=== PATIENT | male | born 1960 | race Caucasian/White ===

== ENCOUNTER → 2020-01-16 | Day surgery (SDC) | payer OTHER ==
--- NOTE | 2020-01-15 11:41 | Pre Op History & Physical ---
CHIEF COMPLAINT: Chronic sinusitis, nasal obstruction, and left oroantral fistula. HISTORY OF PRESENT ILLNESS: This 59-year-old male has sinus problem for a few months. 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 The patient has postnasal drip discharge from his nose. He has decreased sense of smell. He has epistaxis. The patient also complained of frontal and maxillary pain. He has decreased sense of smell. His condition has been treated with topical nasal steroid decongestant, antibiotics with no improvement. The patient had a sinuplasty in the October 2019, with some improvement of the condition. However, the oroantral fistula persists. The patient also claimed that he saw an Oral surgeon, which put a probe in the oroantral fistula and actually made the area bigger with more drainage. CT scan of paranasal sinuses done recently showed the patient has chronic sinusitis with involvement of the left frontal ethmoid maxillary sinus and blockage of the ostiomeatal complex more so on the left side. REVIEW OF SYSTEMS: System review showed no recent cardiovascular, respiratory, or GI problem. PAST MEDICAL HISTORY: The patient has a history of type 2 diabetes, hypertension, coronary artery disease, and also history of rheumatoid arthritis. MEDICATIONS: He is on losartan- HCTZ, Synjardy, Xeljanz, NovoLog, Tresiba, testosterone, and omeprazole. ALLERGIES: HE HAS NO KNOWN ALLERGY TO MEDICATION. SOCIAL HISTORY: The patient has stopped smoking in October 2018, and was a half-a-pack a day smoker and is a nondrinker. FAMILY HISTORY: Noncontributory. PAST SURGICAL HISTORY: The patient has a cardiac stent insertion about two years ago and carpal tunnel release in both wrists. PHYSICAL EXAMINATION: VITAL SIGNS: The patient's vital signs were within normal limits. HEENT: Ear exam showed normal tympanic membrane bilaterally. Nasal exam showed hypertrophy of the inferior turbinates with deviated nasal septum to the left side about 20%. Oropharynx and oral cavity show no obvious abnormality. At the left 2nd and 3rd molar location, there is an oroantral fistula on the left side. NECK: Showed no lymph node or thyroid palpable. CHEST: Showed good air entry bilaterally. CARDIOVASCULAR: Showed S1, S2. No murmur noted. ASSESSMENT AND PLAN: Mr. Daily has chronic sinusitis, nasal obstruction, oroantral fistula, which has been resistant to conservative therapy. The suggested treatment is endoscopic sinus surgery, septoplasty, and other necessary procedure. The complication of procedure includes, but not limited to bleeding, infection, CSF leak, blindness, double vision, meningitis, septal perforation, septal hematoma, persistent nasal obstruction, persistent nasal crusting, nasal deformity, recurrence of the sinus problem and persistent of the oroantral fistula. The alternative will be continue observation, continue antibiotic therapy, topical nasal steroid therapy, systemic steroid therapy decongestant. I have advised the patient that the first step of the approach to the oroantral fistula is open up the sinuses and there would likely be a second-stage, where after the sinuses are clear to close the oroantral fistula. The patient has elected to undergo surgical procedure. MD ZAC Acosta/ALEX /[id number] cc: [facility]
[~2020-01-16] MED LIST: CARVEDILOL12.5 MG PO; CLOPIDOGREL75 MG PO; CRESTOR10 MG PO; DESFLURANE 240 ML BTL INH ONE; DEXAMETHASONE SOD PHOS INJ 4 MG/ML VIAL ONE; EPINEPHRINE HCL 1:1000 1ML 1 MG/ML AMP ONE; FENOFIBRATE145 MG PO; FENTANYL CITRATE/PF 100MCG/2 ML INJ ONE; FOLIC ACID PO; GLYCOPYRROLATE INJ 0.2 MG/ML VIAL ONE; LIDOCAINE 1% W/EPINEPHRINE 20 ML VIAL ONE; LIDOCAINE HCL 2% LOCAL INJ 5 ML SDV VIAL INJ ONE; LOSARTAN-HCTZ1 EACH PO; METHOTREXA25 MG/1 ML SC; METOCLOPRAMIDE HCL 10 MG/2ML VIAL ONE; MIDAZOLAM HCL 2 MG/2 ML VIAL ONE; NEOSTIGMINE 1 MG/ML 10ML VIAL ONE; NOVOLOG100 UNITS1 SQ; OMEPRAZOLE40 MG PO; ONDANSETRON HCL INJ 2MG/ML 2ML 2 MG/ML VIAL ONE; ONE A DAY VITAMIN PO; POTASSIUM PO; PROPOFOL IV EMULSION 10 MG/ML 20 ML VIAL ONE; ROCURONIUM BROMIDE 10 MG/ML 5ML VIAL IV ONE; SYNJARDY 12.5-1 EACH PO; TRESIBA100 UNIT/1 INJ; VITAMIN D3 PO
--- NOTE | 2020-01-16 08:58 | NUR ---
SPIRITUAL CARE - Pre-Surgery Assessment: Pt in bed. Pt's friend at bedside. Pt reported supportive attention from family and friends. Intervention: I provided pastoral presence, hospitality, and sympathetic listening. I acquainted pt with availability of hadoop application developer while hospitalized. Outcome: Pt expressed appreciation for visit. No need for follow up indicated at this time. JOCE Gregoriolain Spiritual Care Department O: [phone]
[2020-01-16 10:10] VITALS: BP 142/70
--- NOTE | 2020-01-16 15:20 | Operative Report ---
DATE OF PROCEDURE: 01/16/2020 SURGEON: Torsten Bolivar MD CHIEF COMPLAINT: Chronic sinusitis, nasal obstruction, left oroantral fistula. POSTOPERATIVE DIAGNOSES: Chronic sinusitis, nasal obstruction, left oroantral fistula. OPERATIVE PROCEDURES: Bilateral anterior and posterior ethmoidectomy, bilateral maxillary sinus antrostomy, bilateral resection of inflamed tissue, maxillary antrum, left exploration of nasofrontal recess area, right sphenoidectomy and septoplasty. ANESTHESIA: Anesthesiology Group. INDICATIONS: This 59-year-old male has history of nasal obstruction. He has an oroantral fistula, which in the left 2nd molar area. This came on after the patient had a tooth extraction. This was at the end of last year. The patient has been treated with topical nasal steroid, decongestant, and antibiotics with over 14 weeks with no improvement. He had a sinuplasty for his sinus condition, which has improvement of the sinus problem. However, the oroantral fistula is still present and apparently not ventilating enough. On examination, he was noted to have a deviated nasal septum in the midportion against the left middle turbinate about 30%. The mucopus still seems to be draining from the middle meatal area. CT scan of paranasal sinuses done showed the patient has involvement of the frontal sinus on the left side and anterior posterior ethmoid sinuses involvement on the left, maxillary sinus involvement on the left side with total opacification. The right ethmoid sinus anterior and posterior ethmoid sinuses involvement and right blockage of the ostiomeatal complex and right sphenoid sinus involvement. Some involvement of the maxillary antrum was noted. It was decided that endoscopic sinus surgery, septoplasty, and other necessary procedure will be beneficial for him. DESCRIPTION OF PROCEDURE: The patient was taken to the operating room, put under general anesthesia, endotracheally intubated. The nose was injected with 1% Xylocaine with 1:100,000 epinephrine for hemostasis. Epinephrine-soaked pledgets were inserted in the nose and this were subsequently removed. The left paranasal sinuses were approached first. Middle turbinate was medialized. The middle meatus on the left side was medialized. Using a microdebrider the bulla ethmoidalis was entered. Anterior and posterior ethmoid sinuses were dissected in systematic fashion. Mucopus was noted coming from the ethmoid and maxillary sinus area. Care was taken during dissection to ascertain although it was not entered. Inflamed tissue was noted both anterior and posterior ethmoid sinus area. During the dissection, Valsalva maneuver was performed to ascertain that there was no obvious CSF leak because of the oozing being more than usual. Using a microshaver, the frontal sinus area was opened up and some mucopus was noted coming from this area. The inflamed tissue was dissected off. Using a curved probe natural ostium maxillary sinus was entered. Mucopus was noted coming from this area. Anaerobic, aerobic and AFB and fungal culture were obtained. The maxillary antrum was enlarged using the microdebrider. Using 120 degree tip of the microshaver, a large amount of inflamed tissue was dissected in the maxillary antrum. This was assisted by using a 45 degree and subsequently a 70 degree telescope. The right paranasal sinuses were approached. Again, the middle turbinate was medialized. The bulla ethmoidalis was entered, anterior and posterior ethmoid sinuses were dissected in a systematic fashion. Care was taken during dissection to ascertain although was not entered. Inflamed tissue was noted in both anterior and posterior ethmoid sinus area. Using a curved probe, the natural ostia maxillary sinus was entered, this was enlarged anteriorly and posteriorly using backbiter and Javier-Cut forceps respectively. Inflamed tissue and maxillary antrum were dissected using a microshaver. The sphenoid sinus was entered through the natural ostium on the right side. This was enlarged using a microshaver. Inflamed tissue in the sphenoid sinus was dissected using a microshaver. The septoplasty was performed. A hemitransfixion incision was done on the left side. Mucoperichondrial flap was elevated on the left. The bony cartilaginous junction was encountered and this was . Perpendicular plate of the ethmoid was transected, this was removed along with the vomer. The quadrangular cartilage after being freed from the posterior constraint was able to swing back in the midline. This also opened up the mid to posterior portion of the septum for proper ventilation and airway for the left middle meatal area. The hemitransfixion incision was closed using 4-0 chromic suture in interrupted fashion. Septal whipstitch was done using 4-0 plain gut suture to reapproximate the mucoperichondrial flap and prevent septal hematoma formation. Nasal pull was inserted in the sinus cavities on either side. This was done to prevent synechiae formation and for hemostasis. The patient tolerated the above procedure well. Estimated blood loss about 30 mL. He was able to be transferred to recovery room in stable condition. MD ZAC Acosta/ALEX /[id number]
== END | disposition home or self-care (01) ==
LOC: OR 05:25
PROVIDERS: ATTEND Otolaryngology Otolaryngology/Facial Plastic Surgery
DX: J32.0 Chronic maxillary sinusitis (principal); J32.2 Chronic ethmoidal sinusitis; J32.1 Chronic frontal sinusitis; J32.3 Chronic sphenoidal sinusitis; J34.2 Deviated nasal septum; J34.89 Other specified disorders of nose and nasal sinuses; G47.33 Obstructive sleep apnea (adult) (pediatric); I10 Essential (primary) hypertension; I25.10 Atherosclerotic heart disease of native coronary artery without angina pectoris; K21.9 Gastro-esophageal reflux disease without esophagitis; E11.9 Type 2 diabetes mellitus without complications; M06.9 Rheumatoid arthritis, unspecified; Z79.02 Long term (current) use of antithrombotics/antiplatelets; Z79.4 Long term (current) use of insulin; Z95.5 Presence of coronary angioplasty implant and graft; Z87.891 Personal history of nicotine dependence
CPT/HCPCS: 30520; 31259; 31267; 31276; 36415; 82948; 87071; 87075; 87102; 87205; 87206; 88300; 88305; J0171; J1100; J2001; J2250; J2405; J2704; J2710; J2765; J3010; 88304

== ENCOUNTER → 2020-03-26 | Day surgery (SDC) | payer OTHER ==
--- NOTE | 2020-03-25 23:00 | Pre Op History & Physical ---
CHIEF COMPLAINT: Closure of left oral antral fistula in #26. Left maxillary oral antral fistula. HISTORY OF PRESENT ILLNESS: This 60-year-old male has history of sinusitis for almost a year. The patient had a tooth extraction and resulted in an oral antral fistula in tooth #26. This has aggravated his sinus problem. The sinus problem has been treated with topical nasal steroid, decongestant, antibiotics with no improvement. He has undergone endoscopic sinus surgery with large intranasal antral window to help ventilate the sinus cavity on both sides. The patient antral fistula on the left with connection to the maxillary sinus has closed for a while, but has recurred. The patient still has some drainage, which is a greenish from the sinus cavities from the left side. The patient's Valsalva air bubble could be seen coming through to the fistula site intraorally and also he could hear the connection into the nasal cavity. REVIEW OF SYSTEMS: System review showed no recent cardiovascular, respiratory, or GI problem. PAST MEDICAL HISTORY: The patient has type 2 diabetes, hypertension, and rheumatoid arthritis. The patient also has history of coronary artery disease. PAST SURGICAL HISTORY: The patient has carpal tunnel release in both wrists, cardiac stent about two years ago and endoscopic sinus surgery in the year 2019. ALLERGIES: THE PATIENT HAS NO KNOWN ALLERGY TO MEDICATION. MEDICATIONS: He is on losartan-HCTZ, testosterone, Tresiba, NovoLog, Xeljanz, Synjardy XR, and omeprazole. The patient also is on anticoagulant. PAST SOCIAL HISTORY: The patient stopped smoking in October of 2018, was a [id number]-day smoker and a nondrinker. FAMILY HISTORY: Noncontributory. PHYSICAL EXAMINATION: VITAL SIGNS: The patient's vital signs were within normal limits. HEENT: Ear exam showed normal tympanic membrane bilaterally. Nasal exam showed no obvious abnormality. The patient has a loss antral window on the medial wall of the left maxillary sinus. Oropharynx and oral cavity show a tooth defect in tooth #26 with oral antral fistula under it can be noticed. NECK: Showed no lymph node or thyroid palpable. CHEST: Showed good air entry bilaterally. CARDIOVASCULAR: Showed S1, S2. No murmur noted. TR[employer] AND ESTATES ATTORNEY: Showed cranial nerves 2 through 12 were within normal limits. ASSESSMENT AND PLAN: Mr. Daily has a left oral antral fistula on 10/11, which is more than a few months. The suggested treatment is closure of oral antral fistula with nasal endoscopy and irrigation of the maxillary sinus on the left side and closure of the fistula with appropriate tissue transfer and other necessary procedure. The complications of procedure includes but not limited to bleeding, infection, persistent of the fistula, the decrease of the buccal gingival sulcus, osteomyelitis, wound breakdown, dysphagia, odynophagia, recurrent persistent of the problem. Alternatives will be continue observation. Closure of the oral antral fistula in the office setting. The patient has elected to undergo surgical procedure. He has been advised to stop his anticoagulants at least five days before surgery. The patient recently was started by his family physician on Bactrim because of what was diagnosed as staph infection on his facial skin and his scalp. MD DOLLY AcostaH/MODL /[id number]
[~2020-03-26] MED LIST changes: +ACETAMINOPHEN 1000 MG/100 ML 100 ML IV ONE; +BALANCED SALT SOLN (OPTH) 15 ML BTL IO ONE; +CLINDAMYCIN PHOS 900MG/ 50ML 50 ML IV ONE; -DESFLURANE 240 ML BTL INH ONE; -DEXAMETHASONE SOD PHOS INJ 4 MG/ML VIAL ONE; -METOCLOPRAMIDE HCL 10 MG/2ML VIAL ONE; -ONDANSETRON HCL INJ 2MG/ML 2ML 2 MG/ML VIAL ONE; +SEVOFLURANE INHAL SOLN 250 ML PEN BTL ONE; +SUCCINYLCHOLINE CHLORIDE 20 MG/ML 10ML VIAL ONE
--- NOTE | 2020-03-26 07:20 | NUR ---
SPIRITUAL CARE - Pre-Surgery Assessment: Pt in bed. Pt reported supportive attention from family and friends. Intervention: Sales Training Manager provided pastoral presence, hospitality, and sympathetic listening. Acquainted pt with availability of veterinary meat inspector while hospitalized. Outcome: Pt expressed appreciation for visit. No need for follow up indicated at this time. JOCE Bnenett Spiritual Care Department O: [phone]
--- NOTE | 2020-03-26 07:24 | Diagnostic Imaging Report ---
EXAMINATION: CHEST 2 VIEWS INDICATION: ^PREOP ^[id number] ^0652 ^BED 2 PREOP COMPARISON: None FINDINGS: PA and lateral views TUBES and LINES: None. LUNGS: Lungs are well inflated. There is no evidence of pneumonia or pulmonary edema. PLEURA: No pleural effusion or pneumothorax. HEART AND MEDIASTINUM: The cardiomediastinal silhouette is unremarkable. BONES AND SOFT TISSUES: No acute osseous lesion. Soft tissues are unremarkable. UPPER ABDOMEN: No free air under the diaphragm. IMPRESSION: No acute thoracic abnormality. Signed by: Dr. Ho Vines MD on 03/26/2020 7:21 AM
--- NOTE | 2020-03-26 10:27 | Operative Report ---
DATE OF PROCEDURE: 03/26/2020 SURGEON: Torsten Bolivar MD CHIEF COMPLAINT: Left oroantral fistula #27. POSTOPERATIVE DIAGNOSIS: Left oroantral fistula #27. OPERATIVE PROCEDURE: Rigid nasal endoscopy and closure of left oroantral fistula #27 with bilateral flap advancement. ANESTHESIA: Anesthesiology Group. INDICATIONS: This 60-year-old male has a more than six months history of oroantral fistula. This came after the patient had a tooth extraction by his dentist. The patient initially came to see me for chronic sinusitis likely secondary to the oroantral fistula. His sinus problem has been addressed. The antral fistula improved for short period of time, but then has returned. The Valsalva maneuver confirmed the fistula on exam. The fistula can be seen as a pinhole at tooth #27. It was decided that closure of the oroantral fistula with local flaps and nasal endoscopy and other necessary procedure will be beneficial for him. DESCRIPTION OF PROCEDURE: The patient was taken to the operating room, put under general anesthesia, endotracheally intubated. The buccal gingival sulcus area was injected with 1% Xylocaine with 1:100,000 epinephrine around tooth #27 location. The area was debrided with the incision along the maxillary ridge. The medial and the lateral flap was elevated on the gingival mucosa on both sides. The granulation tissue around the oroantral fistula was debrided. The curette was used to debride along the track of the fistula to remove any epithelial cells or potentially infected bone along that area. These were sent for permanent section. Before the closure of the flap that was elevated, the nose was examined. 1% xylocaine with 1:100,000 epinephrine was injected into the nose along with Elio-Synephrine pledgets inserted in the nose for hemostasis. These were removed. The maxillary sinus was examined on the left side. Crusting was noted around the middle meatal area. These were removed. The maxillary antrum was irrigated through the antrostomy that was opened from the previous surgery. These were irrigated with copious amount of normal saline. Some mucoid material was irrigated out. This was irrigated until the irrigation was clear. The closure of the mucosal flap that was elevated from the buccal gingival sulcus was performed. These were closed using mattress sutures of 3-0 Vicryl suture in the interrupted fashion. Four of these sutures were used to close the defect without much problem. Because of the angle and #26 tooth, where the area was located that was find that the suturing was awkward, but was done without any problem. The patient tolerated the above procedure well with minimal blood loss. He was given 900 mg of clindamycin intravenously for one shot before surgery. The patient was able to be transferred to recovery room in stable condition. MD ZAC Acosta/ALEX /[id number]
[2020-03-26 10:50] VITALS: BP 125/78
== END | disposition home or self-care (01) ==
LOC: OR 05:38
PROVIDERS: ATTEND Otolaryngology Otolaryngology/Facial Plastic Surgery
DX: J32.0 Chronic maxillary sinusitis (principal); G47.33 Obstructive sleep apnea (adult) (pediatric); I25.10 Atherosclerotic heart disease of native coronary artery without angina pectoris; I25.2 Old myocardial infarction; I10 Essential (primary) hypertension; E78.5 Hyperlipidemia, unspecified; K21.9 Gastro-esophageal reflux disease without esophagitis; E11.9 Type 2 diabetes mellitus without complications; M06.9 Rheumatoid arthritis, unspecified; Z79.84 Long term (current) use of oral hypoglycemic drugs; Z79.02 Long term (current) use of antithrombotics/antiplatelets; Z79.4 Long term (current) use of insulin; Z87.891 Personal history of nicotine dependence
CPT/HCPCS: 30580; 36415; 71046; 82948; 88302; J0131; J0171; J0330; J2001; J2704; J2710; 88304; J2250; J3010